=== PATIENT | female | born 2000 | race Caucasian/White ===

== ENCOUNTER 2020-09-02 13:22 | Emergency (ER) | payer BC ==
[~2020-09-02] VITALS: Ht 175.3 cm; Wt 61.7 kg
[2020-09-02] MEDS ORDERED: IBUP-1114 PO (13:30)
[2020-09-02] MEDS ORDERED: AUGM875T28 PO (13:34)
[2020-09-02 14:28] LABS: BASO % 0.4 % (0.0-1.0); EOS # 0.1 10^3/uL (0.0-0.5); EOS % 1.6 % (0.0-3.0); HEMATOCRIT 43.5 % (36.0-47.0); HEMOGLOBIN 14.2 g/dl (12.0-15.5); LYMPH # 1.3 10^3/uL (1.5-5.0); MEAN CORPUSCULAR HEMOGLOBIN 29.5 pg (27.0-33.0); MEAN CORPUSCULAR HGB CONC 32.6 g/dl (32.0-36.5); MEAN CORPUSCULAR VOLUME 90.4 fl (80.0-96.0); MONO # 0.9 10^3/uL (0.0-0.8); MONO % 12.2 % (2.0-8.0); NEUTROPHILS # 4.7 10^3/uL (1.5-8.5); NEUTROPHILS % 67.4 % (36.0-66.0); PLATELET COUNT, AUTOMATED 203 10^3/uL (150-450); RED BLOOD COUNT 4.81 10^6/uL (4.00-5.40)
[2020-09-02 14:55] LABS: MONO REFLEX EBV COMP NEGATIVE (NEGATIVE)
[2020-09-02] MEDS ORDERED: ISOVUE-370 76% 100ML VIAL As Ordered ONE (15:07)
--- NOTE | 2020-09-02 15:30 | REP ---
INDICATION: right tonsil swelling; r/o abscess. COMPARISON: None. TECHNIQUE: Axial CT images with multiplanar reformations with contrast. FINDINGS: The right tonsil is enlarged, and low-density centrally. The measured Hounsfield unit density at approximately 40, significantly higher than fluid density. The airway slightly deviated to the left however remains patent. Scattered cervical chain lymph nodes are seen bilaterally, both anterior and posterior triangles of the neck. Oropharynx and hypopharynx and larynx appear unremarkable. Paranasal sinuses and mastoid air cells are clear. IMPRESSION: 1. Findings consistent with developing right tonsillar abscess however the Hounsfield unit densities are at approximately 40 suggesting phlegmon rather than drainable collection. 2. Cervical adenopathy, reactive. <Electronically signed by Dwaine Barton > 09/02/20 [id number]
[2020-09-02 16:41] VITALS: BP 126/79
[2020-09-04 16:08] LABS: EBV AB TO NUCLEAR ANTIGEN >600.0 U/mL (0.0-17.9); EBV VIRAL CAPSID AG IgG >600.0 U/mL (0.0-17.9); EBV VIRAL CAPSID AG IgM <36.0 U/mL (0.0-35.9)
== END 2020-09-02 16:45 | disposition home or self-care (01) ==
LOC: M ED 13:22
DX: J03.90 Acute tonsillitis, unspecified (principal)
CPT/HCPCS: 36415; 70491; 80047; 84702; 85025; 86308; 86664; 86665; 99284; Q9967

== ENCOUNTER → 2020-10-08 | Outpatient (REF) | payer BC ==
[~2020-10-08] MED LIST: AUGM875T28 PO; IBUP-1114 PO
== END ==
LOC: M WUC 11:15 → M LAB REF 11:15
PROVIDERS: ATTEND Physician Assistant
DX: J03.90 Acute tonsillitis, unspecified (principal)

== ENCOUNTER 2020-10-10 10:37 | Emergency (ER) | payer BC ==
[~2020-10-10] VITALS: Ht 175.3 cm; Wt 61.3 kg
[2020-10-10] MEDS ORDERED: ISIB1TAB (10:47)
[2020-10-10] MEDS ORDERED: ACET500P3 PO (10:47)
[2020-10-10] MEDS ORDERED: NS 1,000 ML IV ONE (12:00)
[2020-10-10] MEDS ORDERED: dexameTHASONE 20MG/5ML VIAL (J1100 PER 1MG) IV ONE (12:00)
[2020-10-10] MEDS ORDERED: cefTRIAXone SOD 1 GM in D5W MINI-BAG PLUS 50 ML IV ONE (12:10)
[2020-10-10 13:00] LABS: BASO % 0.3 % (0.0-1.0); EOS # 0.2 10^3/uL (0.0-0.5); EOS % 1.6 % (0.0-3.0); HEMATOCRIT 43.7 % (36.0-47.0); HEMOGLOBIN 14.3 g/dl (12.0-15.5); LYMPH # 1.1 10^3/uL (1.5-5.0); LYMPH % 9.3 % (24.0-44.0); MEAN CORPUSCULAR HEMOGLOBIN 29.1 pg (27.0-33.0); MEAN CORPUSCULAR HGB CONC 32.7 g/dl (32.0-36.5); MEAN CORPUSCULAR VOLUME 88.8 fl (80.0-96.0); MONO % 8.4 % (2.0-8.0); NEUTROPHILS # 9.5 10^3/uL (1.5-8.5); PLATELET COUNT, AUTOMATED 175 10^3/uL (150-450); RED BLOOD COUNT 4.92 10^6/uL (4.00-5.40); WHITE BLOOD COUNT 11.8 10^3/uL (4.0-10.0)
[2020-10-10] MEDS ORDERED: ONDANSETRON 4MG/2ML VIAL IV ONE (13:10)
[2020-10-10] MEDS ORDERED: ISOVUE-370 76% 100ML VIAL As Ordered ONE (13:20)
--- NOTE | 2020-10-10 13:57 | REP ---
INDICATION: ro abscess. COMPARISON: Comparison soft tissue neck CT study September 02, 2020.. TECHNIQUE: Helical scanning is acquired following the intravenous injection of 75 mL of Isovue 370. 3 mm axial images re-formatted. Coronal and sagittal MPR images are provided. 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 Retropharyngeal soft tissues are not widened. On axial CT images, the maxillary sinuses are clear. Ethmoid, sphenoid, frontal, and mastoid sinuses are clear as well. No intraorbital lesion is seen. The visualized intracranial structures are unremarkable. No vascular abnormality is seen. The tonsillar soft tissues are somewhat enlarged bilaterally, right particularly so. There is a large low-density area in the right tonsillar soft tissues consistent with a tonsillar/peritonsillar abscess. This measures 3.1 cm in craniocaudal span by 2.3 cm right to left by 2.6 cm anteroposterior. It is larger than the low-density areas seen in the right tonsillar soft tissues on the study done September 02, 2020. No abscess is visible on the left. The tonsils collapse 1 another in the midline and there is mild narrowing of the or pharyngeal airway as result of the tonsillar enlargement. The adenoids are somewhat hypertrophied but no other fluid collection is seen. There is moderate to marked anterior cervical lymphadenopathy. There is an enlarged 3 cm lymph node in the anterior cervical chain on each side and there is shotty posterior cervical lymphadenopathy right greater than left. No bony lesion is seen. IMPRESSION: Findings consistent with recurrent right tonsillar/peritonsillar abscess, now 3.1 x 2.6 x 2.3 cm. There is bilateral cervical lymphadenopathy. There is some adenoidal enlargement but no other abnormal fluid collection. <Electronically signed by Rafael Puente > 10/10/20 [id number]
[2020-10-10] MEDS ORDERED: LIDOCAINE 2% W/EPINEPHRINE 20ML VIAL **PRES FREE INJ ONE (14:20)
[2020-10-10] MEDS ORDERED: CLIN150C15 PO (15:42)
[2020-10-10] MEDS ORDERED: IBUP-1114 PO (15:43)
[2020-10-10] MEDS ORDERED: PERI0.126 PO (15:44)
[2020-10-10] MEDS ORDERED: PERC5TAB12 PO (15:45)
[2020-10-10 15:55] VITALS: BP 139/77
--- NOTE | 2020-10-10 16:07 | CR.PDOC ---
General Date of Consultation: October 10, 2020 Attending Physician: SWETHA VAZQUEZ MD Consultation REASON FOR CONSULTATION/CHIEF COMPLAINT: right peritonsillar abscess. HISTORY OF PRESENT ILLNESS: 2o yo female with right REFRIGERATION PERSON. Seen last month for phlegmon. Now with recurrent right odynophagia, mild trismus. Had repeat CT neck today, demonstrates right REFRIGERATION PERSON. WBC 11 thousand. She does snore per her fater; she also has a history of chronic tonsillitis, as well as a past history of infectious mononucleosis. ALLERGIES: Please see below. HOME MEDICATIONS: Please see below. PAST MEDICAL HISTORY: 1. none pertinent. PAST SURGICAL HISTORY: 1. none pertinent FAMILY HISTORY: Father: none Mother: no Siblings: no Children: no Hereditary Diseases: no Unexpected deaths due to medical reasons: no SOCIAL HISTORY: Marital status and/or living arrangements: no Children: no Employment: [employer] Tobacco use:no ETOH: no Illicit drug use: no IV drug use: no Other relevant social factors: no REVIEW OF SYSTEMS: CONSTITUTIONAL: no. HEENT: chronic tonsillitis. CARDIOVASCULAR: no. RESPIRATORY: no. GENITOURINARY: no. MUSCULOSKELETAL: no. GASTROINTESTINAL: no. SKIN: no. NEUROLOGICAL: no. PSYCHIATRIC: no. ENDOCRINE: no. HEMATOLOGIC/LYMPHATIC: no. ALLERGIC/IMMUNOLOGIC: no. PHYSICAL EXAMINATION: VITAL SIGNS: Please see below. GENERAL APPEARANCE: healthy female in NAD. No stridor, mild trismus. HEENT: ears/nose clear. OC/OP - tonisls are 3+ bilaterally, right peritonsillar edema and hyperemia, deviation of uvula to left; floor of mouth and base of tongue soft, no tongue edema. NECK: no lymphadenopathy, thyroid not enlarged, right neck tender to palpation at tonsil region. RESPIRATORY: clear, no stridor, no labored breathing. CARDIOVASCULAR: RRR. ABDOMEN: not examined. EXTREMITIES: intact. NEUROLOGICAL: non focal, no cranial nerve deficits. PSYCHIATRIC: appropriate. LABORATORY DATA: Please see below. ASSESSMENT/PLAN: 1. Right Peritonsillar Abscess. PROCEDURE: After informed consent, the right REFRIGERATION PERSON was addressed. First, 5cc pus was aspirated with a 20cc syringe and 18g needle. The abscess was cultured. Next 3cc 2% lidocaine with epi was infiltrated about the right peritonsillar region, a #15 blade was used to incise and a hemostat widely spread and aerated the abscess cavity. Copious irrigation and suction completed the procedure. No bleeding. She tolerated the procedure well. PLAN: 1. Peridex mouth rinse. 2. Clindamycin antibiotic. 3. Ibuprofen and percocet for pain. 4. no diet restrictions. 5. Follow up with ENT in 1 month. TONSILLECTOMY in 6-8 weeks. Vital Signs/I&O Vital Signs Date Time Temp Pulse Resp B/P (MAP) Pulse Ox O2 Delivery O2 Flow Rate FiO2 10/10/20 11:34 10/10/20 10:38 97.9 89 18 100 Room Air Laboratory Data Labs 24H Laboratory Tests 2 10/10/20 12:43: POC Glucose (Misc Panel) 92, POC Sodium (Misc Panel) 138, POC Potassium (Misc Panel) 3.7, POC Chloride (Misc Panel) 102, POC Total CO2 (Misc Panel) 27.0, POC Blood Urea Nitrogen (Misc Panel 6L, POC Ionized Calcium (Misc Panel) 4.9, POC Creatinine (Misc Panel) 0.6, POC Hematocrit (Misc Panel) 44.0 10/10/20 12:45: POC Beta HCG, Quantitative < 5.0 10/10/20 12:46: Immature Granulocyte % (Auto) 0.4, Neutrophils (%) (Auto) 80.0H, Lymphocytes (%) (Auto) 9.3L, Monocytes (%) (Auto) 8.4H, Eosinophils (%) (Auto) 1.6, Basophils (%) (Auto) 0.3, Neutrophils # (Auto) 9.5H, Lymphocytes # (Auto) 1.1L, Monocytes # (Auto) 1.0H, Eosinophils # (Auto) 0.2, Basophils # (Auto) 0.0, Nucleated Red Blood Cells % (auto) 0.0 CBC/BMP Laboratory Tests 10/10/20 12:46 Microbiology Microbiology 10/10/20 Wound Culture, Received Pending 10/10/20 Group A Streptococcus Screen (MARIO), Received Pending Allergies Coded Allergies: No Known Drug Allergies (Verified Allergy, Unknown, 09/02/20) Home Medications Scheduled Amoxicillin/Potassium Clav (Augmentin 875-125 Tablet) 1 Each Tablet, 1 TAB PO BID for 10 Days, #20 (Reported) Chlorhexidine Gluconate (Peridex) 473 Ml Mouthwash, 15 ML PO BID for 7 Days, #250 Clindamycin Hcl (Clindamycin HCl) 150 Mg Capsule, 1 CAP PO QID for 10 Days, #40 Scheduled PRN Ibuprofen (Ibuprofen) 400 Mg Tablet, 400 MG PO TID PRN for PAIN for 10 Days, #30 (Reported) Ibuprofen (Ibuprofen) 400 Mg Tablet, 1 TAB PO Q8HP PRN for fever for 5 Days, #20 Miscellaneous Medications Acetaminophen (Tylenol Extra Strength) 500 Mg Powd.pack, 1,000 MG PO, (Reported) Desogestrel-Ethinyl Estradiol (Isibloom 28 Day Tablet) 1 Each Tablet, (Reported) SWETHA VAZQUEZ MD October 10, 2020 16:07
== END 2020-10-10 15:59 | disposition home or self-care (01) ==
LOC: M ED 10:37
DX: J36 Peritonsillar abscess (principal); Z79.891 Long term (current) use of opiate analgesic; Z79.899 Other long term (current) drug therapy; Z79.2 Long term (current) use of antibiotics
CPT/HCPCS: 70491; 80047; 84702; 85025; 87070; 87077; 87880; 96365; 96375; 99283; J0696; J1100; J2405; Q9967

== ENCOUNTER → 2021-07-09 | Outpatient (CLI) | payer BC, OTHER, SELFPAY ==
[~2021-07-09] MED LIST changes: +ACET500P3 PO; +CLIN150C17 PO; +IBUP-1022; +ISIB1TAB; +PERC5TAB12 PO; +PERI0.126 PO
== END ==
LOC: M LABSMTC 10:31
PROVIDERS: ATTEND Anesthesiology
DX: Z01.812 Encounter for preprocedural laboratory examination (principal); Z20.822 Contact with and (suspected) exposure to COVID-19

== ENCOUNTER 2021-07-14 06:15 | Day surgery (SDC) | payer OTHER, SELFPAY ==
[~2021-07-14] VITALS: Ht 172.7 cm; Wt 64.3 kg
[~2021-07-14 06:15] MED LIST changes: +LR 1,000 ML IV ONE; +dexameTHASONE 4 MG/ML 1ML VIAL (J1100 PER 1MG) IV ONE
[2021-07-14] MEDS ORDERED: OXYMETAZOLINE 0.05% NASAL SPRAY (AFRIN) As Ordered ONE (07:13)
[2021-07-14] MEDS ORDERED: ONDANSETRON 4MG/2ML VIAL As Ordered ONE (07:43)
[2021-07-14] MEDS ORDERED: dexameTHASONE 4 MG/ML 1ML VIAL (J1100 PER 1MG) As Ordered ONE (07:43)
[2021-07-14] MEDS ORDERED: ACETAMINOPHEN 1000MG 100ML IV BTL (OFIRMEV) (J0131 PER 10MG) As Ordered ONE (07:43)
[2021-07-14] MEDS ORDERED: LIDOCAINE 2% 100MG/5ML SDV (FOR ANES.) As Ordered ONE (07:43)
[2021-07-14] MEDS ORDERED: fentaNYL 250 MCG/5 ML INJECTION As Ordered ONE (07:43)
[2021-07-14] MEDS ORDERED: MIDAZOLAM INJ 2MG/2ML VIAL (J2250 PER 1MG) As Ordered ONE (07:43)
[2021-07-14] MEDS ORDERED: ROCURONIUM BROMIDE 50 MG/5 ML VIAL As Ordered ONE (07:43)
[2021-07-14] MEDS ORDERED: propofoL 200 MG/20 ML VIAL As Ordered ONE (07:43)
[2021-07-14] MEDS ORDERED: GLYCOPYRROLATE INJ 0.2 MG/ML 2 ML VIAL As Ordered ONE (07:53)
[2021-07-14] MEDS ORDERED: NEOSTIGMINE 10MG/10ML VIAL (J2710 PER 0.5MG) As Ordered ONE (07:53)
[2021-07-14] MEDS ORDERED: oxyCODONE 5MG TAB PO PRN (08:50)
[2021-07-14] MEDS ORDERED: ONDANSETRON 4MG/2ML VIAL IV PRN (08:50)
[2021-07-14] MEDS ORDERED: METOCLOPRAMIDE INJ 10MG/2ML VIAL (J2765 PER 1) IV PRN (08:50)
[2021-07-14] MEDS ORDERED: LR 1,000 ML IV SCH ×2 (08:50→08:55)
[2021-07-14] MEDS ORDERED: fentaNYL 100 MCG/2 ML INJECTION IV PRN (08:50)
[2021-07-14] MEDS ORDERED: IBUPROFEN 600MG TAB PO ONE (09:20)
[2021-07-14 09:35] VITALS: BP 120/69
== END 2021-07-14 10:00 | disposition home or self-care (01) ==
LOC: M SDC 06:15
PROVIDERS: ATTEND Otolaryngology
DX: J35.01 Chronic tonsillitis (principal); Z79.899 Other long term (current) drug therapy
CPT/HCPCS: 42826; 81025; 88302; J0131; J1100; J2250; J2405; J2710; J3010